=== PATIENT | male | born 1980 | race Caucasian/White ===

== ENCOUNTER 2021-10-14 05:27 | Emergency (ER) | payer BC ==
[2021-10-14] MEDS ORDERED: Metoclopramide HCl 10 MG/2 ML VIAL ONE (06:00)
== END 2021-10-14 07:37 | disposition home or self-care (01) ==
LOC: ERS 05:27
DX: R51.9 Headache, unspecified (principal); F17.220 Nicotine dependence, chewing tobacco, uncomplicated
CPT/HCPCS: 70450; 93005; 96365; J2765

== ENCOUNTER 2024-03-23 05:13 | Emergency (ER) | payer BC ==
[2024-03-23] MEDS ORDERED: Ondansetron PF 4 MG/2 ML Vial ONE (05:42)
[2024-03-23] MEDS ORDERED: Morphine 4 MG/ML VIAL ONE (05:42)
[2024-03-23 05:50] LABS: #Basophils 0.04 10x3/uL (0.0-0.2); %Basophils 0.4 % (0.0-1.0); %Eosinophils 1.7 % (0.0-10.0); %Lymphocytes 23.3 % (21.0-51.0); %Monocytes 6.6 % (0.0-10.0); %Neutrophils 67.7 % (42.0-75.0); Hematocrit 51.6 % (42.0-52.0); Hemoglobin 17.3 g/dL (14.0-18.0); Mean Corpuscular HGB CONC 33.5 g/dL (32.0-36.0); Mean Corpuscular Hemoglobin 29.4 pg (27.0-31.0); Mean Corpuscular Volume 87.8 fL (78.0-98.0); Platelet Count 202 10x3/uL (130-400); RBC Distribution Width 12.9 % (11.5-14.5); Red Blood Cell (RBC) Count 5.88 mill/uL (4.70-6.10)
[2024-03-23 06:16] LABS: ALT (SGPT) 23 U/L (8-55); AST (SGOT) 19 U/L (5-34); Albumin 4.1 g/dL (3.5-5.0); Alkaline Phosphatase 85 U/L (40-110); Anion Gap 13 mmol/L (10-20); BUN (Urea Nitrogen) 11 mg/dL (8.9-20.6); Bilirubin, Total 0.5 mg/dL (0.2-1.2); Calc. Creatinine Clearance 0 mL/min (70-130); Calcium 9.1 mg/dL (7.8-10.44); Carbon Dioxide 26 mmol/L (22-29); Chloride 106 mmol/L (98-107); Estimated GFR 94; Globulin 3.3 g/dL (2.4-3.5); Glucose 103 mg/dL (70-105); Lipase 31 U/L (8-78); Potassium 4.1 mmol/L (3.5-5.1); Protein, Total 7.4 g/dL (6.0-8.3); Sodium 141 mmol/L (136-145)
[2024-03-23] MEDS ORDERED: Ketorolac Tromethamine 30 MG (1 mL) VIAL ONE (06:22)
[2024-03-23] MEDS ORDERED: Iopamidol-370 76% 500 ML MDV (1 ML CHARGE) ONE (10:16)
== END 2024-03-23 06:34 | disposition home or self-care (01) ==
LOC: ERS 05:13
DX: K52.9 Noninfective gastroenteritis and colitis, unspecified (principal); I10 Essential (primary) hypertension
CPT/HCPCS: 74177; 80053; 83690; 85025; 96374; 96375; J1885; J2270; J2405; Q9967